=== PATIENT | female | born 1975 | race American Indian/Alaskan Native ===

== ENCOUNTER 2018-11-13 12:52 | Emergency (ER) | payer OTHER ==
--- NOTE | 2018-11-13 13:06 | Emergency Department Report ---
Blank Doc - Documentation Documentation: This is a 42-year-old female that presents with URI symptoms and right wrist p ain. This initial assessment/diagnostic orders/clinical plan/treatment(s) is/are subject to change based on patient's health status, clinical progression and re- assessment by fellow clinical providers in the ED. Further treatment and workup at subsequent clinical providers discretion. Patient/guardians urged not to elope from the ED as their condition may be serious if not clinically assessed a nd managed. Initial orders include: 1- Patient sent to [facility] for further evaluation and treatment 2- xrays
[2018-11-13 13:07] VITALS: BP 184/101
--- NOTE | 2018-11-13 14:01 | XRay Report ---
CHEST 2 VIEWS INDICATION / CLINICAL INFORMATION: cough. COMPARISON: None available. FINDINGS: SUPPORT DEVICES: None. HEART / MEDIASTINUM: No significant abnormality. LUNGS / PLEURA: No significant pulmonary or pleural abnormality. No pneumothorax. ADDITIONAL FINDINGS: No significant additional findings. IMPRESSION: 1. No acute findings. Signer Name: Valentín Bird MD Signed: 11/13/2018 1:57 PM Workstation Name: [id number]
--- NOTE | 2018-11-13 14:02 | XRay Report ---
XR wrist 3+V RT INDICATION / CLINICAL INFORMATION: Right wrist pain for 1 month. COMPARISON: None available. FINDINGS: BONES/JOINT(S): No acute fracture or subluxation. 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 No aggressive appearing bone lesions. SOFT TISSUES: No significant abnormality. ADDITIONAL FINDINGS: None. Signer Name: Valentín Bird MD Signed: 11/13/2018 1:57 PM Workstation Name: [id number]
[2018-11-13] MEDS ORDERED: ZITHROMAX PO ONE (15:41)
[2018-11-13] MEDS ORDERED: DELTASONE PO ONE (15:41)
[2018-11-13] MEDS ORDERED: PROVENTIL IH ONE (15:41)
[2018-11-13] MEDS ORDERED: IBUPROFEN PO ONE (15:42)
[2018-11-13] MEDS ORDERED: TESSALON PERLES PO ONE (15:50)
--- NOTE | 2018-11-13 15:56 | Emergency Department Report ---
- General Chief Complaint: Upper Respiratory Infection Stated Complaint: COUGH/CHEST PAIN/HEADACHE/MIGARINES Time Seen by Provider: 11/13/18 13:05 Source: patient Mode of arrival: Ambulatory Limitations: No Limitations - History of Present Illness Initial Comments: symptoms feel similar to past pneumonia MD Complaint: cough, rhinorrhea, nasal congestion -: Gradual, days(s) (approximately 5 days) Severity: mild Severity scale (0 -10): 2 Consistency: intermittent Improves With: nothing Worsens With: nothing Context: other (reports smokes cigarettes) Associated Symptoms: chills, myalgias, rhinorrhea, nasal congestion, stiff neck, cough, chest pain, other (wheezing). denies: diaphoresis, headache, shortness of breath, abdominal pain, nausea, diarrhea, rash, confusion, right sweats, weight loss, epistaxis, hoarseness, ear pain - Related Data Previous Rx's Medication Instructions Recorded Last Taken Type Albuterol Sulfate [Proair 90 mcg IH Q4H PRN #1 aer.pow.ba 11/13/18 Unknown Rx Respiclick] Azithromycin [Zithromax Z-BANDAR] 250 mg PO DAILY #4 tablet 11/13/18 Unknown Rx Benzonatate [Tessalon Perles] 100 mg PO Q8HR PRN #21 capsule 11/13/18 Unknown Rx Ibuprofen [Motrin 600 MG tab] 600 mg PO Q6H PRN #20 tablet 11/13/18 Unknown Rx predniSONE [Deltasone] 20 mg PO QDAY #3 tab 11/13/18 Unknown Rx Allergies Allergy/AdvReac Type Severity Reaction Status Date / Time No Known Allergies Allergy Unverified 11/13/18 12:55 ED Review of Systems ROS: Stated complaint: COUGH/CHEST PAIN/HEADACHE/MIGARINES Other details as noted in HPI Other: GENERAL: No weight change, fatigue, weakness, fever, chills, or night sweats SKIN: No changes in skin or hair, no itching, no rashes, no jaundice HEAD: No trauma, headache, or visual changes EYES: No blurriness, tearing, itching, acute visual loss, conjunctival discoloration, or scleral icterus EARS: No hearing loss, tinnitus, vertigo, or earache NOSE: rhinorrhea, stuffiness MOUTH: No bleeding gums, hoarseness, sore throat, or swelling CARDIAC: No new murmur, chest pain, palpitations, dyspnea on exertion, orthopnea, PND, or edema RESPIRATORY: Wheezing, cough. No shortness of breath, sputum production, hemoptysis GI: No change in appetite, nausea, vomiting, dysphagia, change in bowel frequency, diarrhea, constipation, bleeding, hematemesis, melena, hematochezia, or abdominal pain URINARY: No frequency, urgency, polyuria, dysuria, hematuria, or incontinence MUSCULOSKELETAL: No muscle weakness, joint stiffness, decrease in range of motion, redness, swelling NEUROLOGIC: No loss of sensation, numbness, tingling, tremors, weakness, paralysis, seizures HEMATOLOGIC: No anemia, easy bruising, bleeding, petechiae, or purpura ENDOCRINE: No hot or cold intolerance, sweating, polyuria, polydipsia or, polyphagia no thyroid problems PSYCHIATRIC: No change in mood, no anxiety, no depression ED Past Medical Hx - Past Medical History Previous Medical History?: Yes Hx Hypertension: Yes Hx GERD: Yes Hx Headaches / Migraines: Yes Additional medical history: Sickle cell trait - Surgical History Past Surgical History?: No - Social History Smoking Status: Current Every Day Smoker Substance Use Type: None - Medications Home Medications: Home Medications Medication Instructions Recorded Confirmed Last Taken Type Albuterol Sulfate [Proair 90 mcg IH Q4H PRN #1 aer.pow.ba 11/13/18 Unknown Rx Respiclick] Azithromycin [Zithromax Z-BANDAR] 250 mg PO DAILY #4 tablet 11/13/18 Unknown Rx Benzonatate [Tessalon Perles] 100 mg PO Q8HR PRN #21 capsule 11/13/18 Unknown Rx Ibuprofen [Motrin 600 MG tab] 600 mg PO Q6H PRN #20 tablet 11/13/18 Unknown Rx predniSONE [Deltasone] 20 mg PO QDAY #3 tab 11/13/18 Unknown Rx ED Physical Exam - General Limitations: No Limitations - Other Other exam information: GENERAL: Patient in no acute distress HEAD: Normocephalic, atraumatic EYES: PERRLA, EOM intact, no scleral icterus, no papilledema, no conjunctival hemorrhage, visual waterman and acuity wnl NOSE: No tenderness, discharge, sinus tenderness MOUTH: No erythema, bleeding, exudate HEART: Regular rate and rhythm, no murmur, S1-S2 are auscultated, pulses are s ymmetric LUNGS: Mild bilateral wheeze. No rales, rhonchi ABDOMEN: Normal bowel sounds, no tenderness, no rebound, no guarding, no masses, no CVA tenderness MUSCULOSKELETAL: Right radial wrist pain with ulnar abduction wrist while holding thumb inside hand. no redness, no swelling NEUROLOGIC: GCS 15, Alert and Oriented x3, Cranial nerves intact, normal sensation, normal strength, no cerebellar deficit SKIN: Skin is warm and dry, no wounds, no rashes ED Course Vital Signs 11/13/18 11/13/18 13:06 16:15 Temperature 98.3 F Pulse Rate 98 H Respiratory 18 18 Rate Blood Pressure 184/101 O2 Sat by Pulse 99 Oximetry ED Medical Decision Making - Radiology Data Radiology results: report reviewed - Medical Decision Making Patient comfortable. Updated with results. Plan discharge with outpatient follow up. Return if any worsening. Critical care attestation.: If time is entered above; I have spent that time in minutes in the direct care of this critically ill patient, excluding procedure time. ED Disposition Clinical Impression: Bronchitis, Tenosynovitis, de Quervain Disposition: TO HOME OR SELFCARE Is pt being admited?: No Condition: Stable Instructions: Acute Bronchitis (ED), De Quervain Disease (ED) Prescriptions: predniSONE [Deltasone] 20 mg PO QDAY #3 tab Ibuprofen [Motrin 600 MG tab] 600 mg PO Q6H PRN #20 tablet PRN Reason: Pain Albuterol Sulfate [Proair Respiclick] 90 mcg IH Q4H PRN #1 aer.pow.ba PRN Reason: Wheezing Benzonatate [Tessalon Perles] 100 mg PO Q8HR PRN #21 capsule PRN Reason: Cough Azithromycin [Zithromax Z-BANDAR] 250 mg PO DAILY #4 tablet Referrals: DEMETRIO HUERTA MD [Primary Care Provider] - 2-3 Days Forms: Work/School Release Form(ED) Time of Disposition: 15:53
== END 2018-11-13 16:50 | disposition home or self-care (01) ==
LOC: ED 12:52
DX: J40 Bronchitis, not specified as acute or chronic (principal); M65.4 Radial styloid tenosynovitis [de Quervain]; I10 Essential (primary) hypertension; K21.9 Gastro-esophageal reflux disease without esophagitis; G43.909 Migraine, unspecified, not intractable, without status migrainosus; F17.200 Nicotine dependence, unspecified, uncomplicated; D57.3 Sickle-cell trait; Z79.899 Other long term (current) drug therapy
CPT/HCPCS: 71046; 73110; 99284; J7512